=== PATIENT | female | born 1985 | race Caucasian/White ===

== ENCOUNTER 2017-04-13 14:09 | Inpatient (IN) | payer OTHER ==
[~2017-04-13] VITALS: Ht 144.8 cm; Wt 55.4 kg
[2017-04-13] MEDS ORDERED: DIPHENHYDRAMINE 50MG/ML VIAL IM STA (14:25)
[2017-04-13] MEDS ORDERED: LORAZEPAM 2MG/ML CPJ IM STA (14:25)
[2017-04-13] MEDS ORDERED: HALOPERIDOL LACTATE 5MG/ML VIAL IM STA (14:25)
[2017-04-13] MEDS ORDERED: SODIUM CHLORIDE 0.9% 1000ML BAG (SEPSIS BOLUS) IV ONE (14:30)
[2017-04-13 15:00] LABS: BASOPHILS % 0.5 % (0.0-2.0); EOSINOPHILS % 0.2 % (0.0-5.0); LYMPHOCYTES % 18.6 % (20.0-50.0); MEAN CORPUSCULAR HEMOGLOBIN 29.3 pg (28.0-32.0); MEAN CORPUSCULAR VOLUME 85.9 fL (81.0-99.0); MEAN PLATELET VOLUME 7.5 fl (7.4-10.4); MONOCYTES % 5.6 % (2.0-8.0); NEUTROPHILS % 75.1 % (40.0-76.0); PLATELET 464 x1000/uL (130-400); RED BLOOD CELL COUNT 4.43 mill/uL (4.2-5.4); RED CELL DISTRIBUTION WIDTH 13.6 % (11.6-14.6)
[2017-04-13 15:09] LABS: INR 1.1; PARTIAL THROMBOPLASTIN TIME 25.4 sec (23.4-31.0)
[2017-04-13 15:12] LABS: AMMONIA < 25 uMol/L (<32)
[2017-04-13 15:15] LABS: CARBON DIOXIDE 22 mEq/L (21-32); CHLORIDE 108 mEq/L (98-107); ETHANOL BLOOD < 10 mg/dL
[2017-04-13 15:19] LABS: TROPONIN I < 0.02 ng/mL (0.00-0.04)
[2017-04-13 15:22] LABS: HCG SCREEN NEGATIVE
[2017-04-13 18:21] LABS: CLARITY URINE CLEAR (CLEAR); COLOR URINE YELLOW (YELLOW); KETONES URINE TRACE (NEGATIVE); LEUKOCYTE ESTERASE URINE NEGATIVE (NEGATIVE); NITRITE URINE NEGATIVE (NEGATIVE); OCCULT BLOOD URINE NEGATIVE (NEGATIVE); PROTEIN URINE NEGATIVE (NEGATIVE); SPECIFIC GRAVITY URINE 1.028 (1.005-1.030); UROBILINOGEN URINE 0.2 E.U./dL (0.2-1.0)
[2017-04-13 18:43] LABS: *BARBITURATES SCREEN URINE NEGATIVE (NEGATIVE); *COCAINE SCREEN URINE NEGATIVE (NEGATIVE); CANNABINOID URINE SCREEN NEGATIVE (NEGATIVE); METHADONE URINE SCREEN NEGATIVE (NEGATIVE); OPIATES URINE SCREEN NEGATIVE (NEGATIVE); PHENCYCLIDINE URINE SCREEN NEGATIVE (NEGATIVE)
[2017-04-13 18:44] LABS: *AMPHETAMINES SCREEN URINE PRESUMTIVE POSITIVE (NEGATIVE); *BENZODIAZEPINES SCREEN URINE PRESUMTIVE POSITIVE (NEGATIVE)
[2017-04-13] MEDS ORDERED: LEVOFLOXACIN 750MG PREMIX 150 ML IV ONE (19:15)
[2017-04-13] MEDS: SODIUM CHLORIDE 0.9% 1,000 ML IV SCH (20:07)
[2017-04-13] MEDS ORDERED: IPRATROPIUM/ALBUTEROL 0.5-3(2.5)MG/3ML NEB INH PRN (20:15)
[2017-04-13] MEDS ORDERED: ONDANSETRON HCL 4MG/2ML VIAL IV PRN (20:15)
[2017-04-13] MEDS ORDERED: DOCUSATE SODIUM 100MG CAPSULE PO PRN (20:15)
[2017-04-13] MEDS ORDERED: HYDROCODONE/ACETAMINOPHEN 5/325MG TABLET PO PRN (20:15)
[2017-04-13] MEDS ORDERED: CLONIDINE 0.1MG TABLET PO PRN (20:15)
[2017-04-13] MEDS ORDERED: LORAZEPAM 2MG/ML CPJ IV PRN (20:15)
[2017-04-13] MEDS ORDERED: ACETAMINOPHEN 325MG TABLET PO PRN (20:15)
[2017-04-13] MEDS ORDERED: MAGNESIUM/ALUMINUM HYDROXIDE/SIMETHICONE 30ML UDC PO PRN (20:15)
[2017-04-13 21:44] VITALS: BP 93/60
[2017-04-13 21:45] VITALS: BP 93/66
[2017-04-14] VITALS: BP 93/46
[2017-04-14 00:10] LABS: CARBON DIOXIDE 24 mEq/L (21-32); CHLORIDE 114 mEq/L (98-107); CREATINE KINASE 502 IU/L (26-192); CREATINE KINASE MB FRACTION 8.9 ng/mL (0.5-3.6); TROPONIN I < 0.02 ng/mL (0.00-0.04)
[2017-04-14 04:00] VITALS: BP 90/51
[2017-04-14] MEDS: SODIUM CHLORIDE 0.9% 1,000 ML IV SCH ×3 (06:21→23:34)
[2017-04-14 07:26] LABS: BASOPHILS % 0.7 % (0.0-2.0); HEMATOCRIT. 30.9 % (36.0-48.0); HEMOGLOBIN. 10.5 g/dL (12.0-16.0); LYMPHOCYTES % 26.8 % (20.0-50.0); MEAN CORPUSCULAR HEMOGLOBIN 29.9 pg (28.0-32.0); MEAN CORPUSCULAR VOLUME 87.8 fL (81.0-99.0); MEAN PLATELET VOLUME 7.7 fl (7.4-10.4); MONOCYTES % 7.9 % (2.0-8.0); NEUTROPHILS % 63.6 % (40.0-76.0); PLATELET 307 x1000/uL (130-400); RED BLOOD CELL COUNT 3.52 mill/uL (4.2-5.4); RED CELL DISTRIBUTION WIDTH 13.6 % (11.6-14.6)
[2017-04-14 08:00] VITALS: BP 87/51
[2017-04-14 08:36] LABS: CREATINE KINASE 439 IU/L (26-192); CREATINE KINASE MB FRACTION 6.7 ng/mL (0.5-3.6); HDL CHOLESTEROL 36 mg/dL (40-59); LDL CHOLESTEROL 51 mg/dL (5-100); T4 FREE 1.16 ng/dL (0.76-1.46); TROPONIN I < 0.02 ng/mL (0.00-0.04)
[2017-04-14] MEDS: ENOXAPARIN 40MG/0.4ML SYR SUBCUT SCH (10:29)
[2017-04-14 12:00] VITALS: BP 91/62
[2017-04-14] MEDS ORDERED: POTASSIUM CHLORIDE 20MEQ TABLET SR PO NR (15:45)
[2017-04-14 16:00] VITALS: BP 81/39
[2017-04-14 20:00] VITALS: BP 88/56
[2017-04-14] MEDS ORDERED: SODIUM CHLORIDE 0.9% 1000ML BAG (SEPSIS BOLUS) IV NR (20:30)
[2017-04-15] VITALS: BP 83/51
[2017-04-15 01:32] VITALS: BP 90/52
[2017-04-15 04:00] VITALS: BP 87/55
[2017-04-15 08:20] VITALS: BP 93/49
[2017-04-15] MEDS: ENOXAPARIN 40MG/0.4ML SYR SUBCUT SCH (09:24)
[2017-04-15 12:06] VITALS: BP 89/54
[2017-04-15 14:20] VITALS: BP 89/54
== END 2017-04-15 15:55 | disposition home or self-care (01) | DRG 812 ==
LOC: ER 14:25 → 5WST 19:20 → ENRESERV 19:38
PROVIDERS: ADMIT Internal Medicine; ATTEND Internal Medicine
DX: T43.621A Poisoning by amphetamines, accidental (unintentional), initial encounter (principal); M62.82 Rhabdomyolysis; Y92.89 Other specified places as the place of occurrence of the external cause; D64.9 Anemia, unspecified; E86.0 Dehydration; E87.6 Hypokalemia; Z79.899 Other long term (current) drug therapy
CPT/HCPCS: 36415; 70450; 71045; 80048; 80053; 80061; 80305; 80307; 80329; 81003; 82140; 82550; 82553; 83605; 83880; 84439; 84443; 84484; 84703; 85025; 85610; 85730; 86850; 86870; 86900; 87040; 87086; 87186; 87804; 93005; 93970; 96361; 96365; 96372; 99291; G0482; J1200; J1630; J1650; J1956; J2060; J7030